=== PATIENT | female | born 1995 | race African-American/Black ===

== ENCOUNTER 2019-03-26 11:57 | Emergency (ER) | payer SELFPAY ==
[~2019-03-26] VITALS: Ht 165.1 cm; Wt 63.5 kg
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
[2019-03-26] MEDS ORDERED: LIDOCAINE (700MG/PATCH) PATCH. TD ONE (13:05)
[2019-03-26 13:32] VITALS: BP 117/55
== END 2019-03-26 13:34 | disposition home or self-care (01) ==
LOC: ER 11:57
DX: S29.012A Strain of muscle and tendon of back wall of thorax, initial encounter (principal); M54.2 Cervicalgia; R51 Headache; M79.605 Pain in left leg; M79.604 Pain in right leg; V47.5XXA Car driver injured in collision with fixed or stationary object in traffic accident, initial encounter; Y93.89 Activity, other specified; Y92.410 Unspecified street and highway as the place of occurrence of the external cause; Y99.8 Other external cause status
CPT/HCPCS: 99282